=== PATIENT | male | born 1960 | race Caucasian/White ===

== ENCOUNTER 2020-10-02 13:33 | Inpatient (IN) | payer OTHER, BC ==
[2020-10-02 14:11] LABS: CHLORIDE,CL 86 mEq/L (98-106); SODIUM,NA 126 mEq/L (136-145)
--- NOTE | 2020-10-02 14:15 | EDM.PDOC ---
ED HPI GENERAL MEDICAL PROBLEM - General Chief Complaint: General Stated Complaint: L Knee Pain Time Seen by Provider: 10/02/20 13:45 Source of Information: Reports: Patient, Other (friends- Lee Corbett) History Limitations: Reports: No Limitations - History of Present Illness INITIAL COMMENTS - FREE TEXT/NARRATIVE: Was stuck between a fender and a cab on the tractor that he was mowing grass with. He states that his knee gave out. He couldn't get himself out and was estimated that he was there for over 3.5 hours. He has abrasion to his knees bilaterally the left one was the one stuck. He has abrasion to the right hip where there was pressure applied and from trying to get out. The friend that brought him, (Lee Corbett) states that his son had been here over the weekend and he felt that he wasn't right but couldn't be more specific. He felt that he didn't answer all questions right and would just stare for short periods. Also noted an episode where he had some shaking. Pt states that his legs have been bothering him for "awhile" stating that they don't want to hold him up. He Denies any injuries or weakness overall. No headaches. Onset: Gradual Location: Reports: Lower Extremity, Left, Lower Extremity, Right, Generalized - Related Data Allergies Allergy/AdvReac Type Severity Reaction Status Date / Time No Known Allergies Allergy Verified 10/02/20 13:40 Home Meds: Home Meds Lisinopril/Hydrochlorothiazide [Lisinopril-Hctz 20-25 mg Tab] 1 each PO DAILY 10/02/20 [History] Magnesium Chloride [Slow-Mag] 71.5 mg PO BID 10/02/20 [History] Metoprolol Succinate 200 mg PO DAILY 10/02/20 [History] NIFEdipine [Nifedipine ER] 30 mg PO DAILY 10/02/20 [History] Potassium Chloride 10 meq PO DAILY 10/02/20 [History] atorvaSTATin [Lipitor] 20 mg PO BEDTIME 10/02/20 [History] metFORMIN HCl [Metformin HCl] 1,000 mg PO DAILY 10/02/20 [History] Past Medical History - History Comment History Comment: see RN notes for past medical, family, social, surgical history Social & Family History - Tobacco Use Tobacco Use Status *Q: Never Tobacco User - Living Situation & Occupation Living situation: Reports: , with Spouse Occupation: Employed ED ROS GENERAL - Review of Systems Review Of Systems: See Below Constitutional: Reports: Weakness, Fatigue. Denies: Fever, Chills HEENT: Reports: No Symptoms Respiratory: Reports: No Symptoms Cardiovascular: Denies: Chest Pain, Edema GI/Abdominal: Reports: No Symptoms. Denies: Abdominal Pain, Constipation, Diarrhea : Reports: No Symptoms. Denies: Dysuria, Frequency, Incontinence Musculoskeletal: Reports: Leg Pain Skin: Reports: Bruising, Wound (bilateral knees, right hip) Neurological: Reports: Difficulty Walking, Weakness, Other (slow to respond to questions at times.) Psychiatric: Reports: No Symptoms Hematologic/Lymphatic: Reports: No Symptoms ED EXAM, GENERAL - Physical Exam Exam: See Below Exam Limited By: No Limitations General Appearance: Alert, WD/WN, Mild Distress Eye Exam: Bilateral Eye: PERRL Ears: Normal External Exam, Normal Canal, Normal TMs Nose: Normal Inspection Throat/Mouth: Normal Inspection, Normal Oropharynx, No Airway Compromise, Other (oral mucosa is dry.) Head: Atraumatic, Normocephalic Neck: Normal Inspection, Supple, Non-Tender, Full Range of Motion Respiratory/Chest: No Respiratory Distress, Lungs Clear, Normal Breath Sounds Cardiovascular: Normal Peripheral Pulses, Regular Rate, Rhythm, No Edema GI/Abdominal: Normal Bowel Sounds, Soft, Non-Tender Back Exam: Normal Inspection, Full Range of Motion Extremities: Other (knees bilaterally are bruised with abrasions on them. Has abrasion to the right hip where it pressed against the tractor where he was stuck. States that he didn't have enough strength to lift himself up when his legs gave out on the tractor.) Neurological: Alert, Oriented, Slow to Respond (Has to think before he answers some questions. He admits that he just doesn't feel right but can't be more specific. He repeated several times that it feels like his legs weren't going to hold him up several occasions over the weekend. ) Psychiatric: Normal Affect Skin Exam: Warm, Dry, Intact, Normal Color Course - Vital Signs Last Recorded V/S: Last Vital Signs Temp 97.9 F 10/02/20 16:00 Pulse 94 10/02/20 16:00 Resp 18 10/02/20 16:00 BP 111/78 10/02/20 16:00 Pulse Ox 96 10/02/20 16:00 - Orders/Labs/Meds Orders: Active Orders 24 hr Category Date Time Status Head wo Cont [CT] Stat Exams 10/02/20 13:38 Taken Knee 3V Lt [CR] Stat Exams 10/02/20 13:47 Taken CULTURE URINE [RM] Stat Lab 10/02/20 17:20 Received Sodium Chloride 0.9% [Normal Saline] 1,000 ml Med 10/02/20 14:30 Active IV ASDIRECTED Medication Orders Acetaminophen (Acetaminophen 325 Mg Tab) 650 mg PO Q4H PRN PRN Reason: Pain (Mild 1-3)/fever Atorvastatin Calcium (Atorvastatin 20 Mg Tab) 20 mg PO BEDTIME [facility] Last Admin: 10/02/20 19:41 Dose: 20 mg Documented by: HUSSEIN Ceftriaxone Sodium (Ceftriaxone 1 Gm Vial) 1 gm IVPUSH BEDTIME [facility] Last Admin: 10/02/20 17:45 Dose: 1 gm Documented by: TAMARA Enoxaparin Sodium (Enoxaparin 40 Mg/0.4 Ml Syringe) 40 mg SUBCUT DAILY@1200 [facility] Hydrochlorothiazide (Hydrochlorothiazide 25 Mg Tab) 25 mg PO DAILY [facility] Sodium Chloride (Normal Saline) 1,000 mls @ 200 mls/hr IV ASDIRECTED [facility] Last Admin: 10/02/20 14:32 Dose: 200 mls/hr Documented by: TAMARA Lisinopril (Lisinopril 20 Mg Tab) 20 mg PO DAILY [facility] Magnesium Chloride (Magnesium Chloride 64 Mg Tab.Er) 64 mg PO BIDMEALS [facility] Last Admin: 10/02/20 16:56 Dose: 64 mg Documented by: TAMARA Metformin HCl (Metformin 500 Mg Tab) 1,000 mg PO DAILY [facility] Metoprolol Succinate (Metoprolol Succinate 100 Mg Tab.Er) 200 mg PO DAILY [facility] Nifedipine (Nifedipine 30 Mg Tab.Er) 30 mg PO DAILY [facility] Labs: Laboratory Tests 10/02/20 10/02/20 10/02/20 Range/Units 13:48 13:48 13:48 WBC 11.2 H (5.0-10.0) 10^3/uL RBC 3.87 L (4.50-6.00) 10^6/uL Hgb 12.9 L (14.0-18.0) g/dL Hct 36.1 L (40.0-54.0) % MCV 93.3 (82.0-94.0) fL MCH 33.3 H (27.0-32.0) pg MCHC 35.7 (33.0-38.0) g/dL RDW Coeff of Cammie 13.4 (11.0-15.0) % Plt Count 77 L (150-400) 10^3/uL Add Manual Diff Yes Neutrophils % (Manual) 72 (35-85) % Band Neutrophils % 18 H (0-5) % Lymphocytes % (Manual) 3 L (21-55) % Monocytes % (Manual) 7 (2-12) % Sodium 126 L (136-145) mEq/L Potassium 3.0 L D (3.5-5.0) mEq/L Chloride 86 L (98-106) mEq/L Carbon Dioxide 17 L (21-32) mmol/L BUN 26 H D (7-18) mg/dL Creatinine 2.4 H D (0.7-1.3) mg/dL Est Cr Clr Drug Dosing 37.58 mL/min Estimated GFR (MDRD) 28 L (>=60) mL/min Glucose 242 H D (75-99) mg/dL Lactic Acid 10.9 H (0.4-2.0) mmol/L Calcium 9.1 (8.4-10.1) mg/dL Magnesium 1.8 (1.8-2.4) mg/dL Total Bilirubin 2.1 H (0.0-1.0) mg/dL AST 44 H (15-37) U/L ALT 25 (12-78) U/L Alkaline Phosphatase 117 H (46-116) U/L Creatine Kinase 697 H (35-232) U/L Troponin I < 0.017 (0.00-0.06) ng/mL C-Reactive Protein 28.2 H (0.2-0.8) mg/dL Total Protein 7.1 (6.4-8.2) g/dL Albumin 3.0 L (3.4-5.0) g/dL Meds: Medications Generic Name Dose Route Start Last Admin Trade Name Freq PRN Reason Stop Dose Admin Acetaminophen 650 mg 10/02/20 15:30 Acetaminophen 325 Mg Tab PO Q4H PRN Pain (Mild 1-3)/fever Atorvastatin Calcium 20 mg 10/02/20 20:00 10/02/20 19:41 Atorvastatin 20 Mg Tab PO 20 mg BEDTIME RASHEED Administration Ceftriaxone Sodium 1 gm 10/02/20 18:00 10/02/20 17:45 Ceftriaxone 1 Gm Vial IVPUSH 1 gm BEDTIME RASHEED Administration Enoxaparin Sodium 40 mg 10/03/20 12:00 Enoxaparin 40 Mg/0.4 Ml Syringe SUBCUT DAILY@1200 [facility] Hydrochlorothiazide 25 mg 10/03/20 08:00 Hydrochlorothiazide 25 Mg Tab PO DAILY [facility] Sodium Chloride 1,000 mls @ 200 mls/hr 10/02/20 14:30 10/02/20 14:32 Normal Saline IV 200 mls/hr ASDIRECTED RASHEED Administration Lisinopril 20 mg 10/03/20 08:00 Lisinopril 20 Mg Tab PO DAILY RASHEED Magnesium Chloride 64 mg 10/02/20 17:30 10/02/20 16:56 Magnesium Chloride 64 Mg Tab.Er PO 64 mg BIDMEALS RASHEED Administration Metformin HCl 1,000 mg 10/03/20 08:00 Metformin 500 Mg Tab PO DAILY [facility] Metoprolol Succinate 200 mg 10/03/20 08:00 Metoprolol Succinate 100 Mg Tab.Er PO DAILY [facility] Nifedipine 30 mg 10/03/20 08:00 Nifedipine 30 Mg Tab.Er PO DAILY [facility] Discontinued Medications Generic Name Dose Route Start Last Admin Trade Name Freq PRN Reason Stop Dose Admin Potassium Chloride 40 meq/ 100 mls @ 25 mls/hr 10/02/20 16:30 10/02/20 16:56 Premix IV 10/02/20 20:29 25 mls/hr ONETIME ONE Administration Departure - Departure Time of Disposition: 15:00 Disposition: Admitted As Inpatient 65 Condition: Fair Clinical Impression: Hypokalemia, Hyponatremia, Acute renal insufficiency Crush injury lower leg Qualifiers: Encounter type: initial encounter Laterality: left Qualified Code(s): S87.82XA - Crushing injury of left lower leg, initial encounter Clinical Impression: (Ruled Out): Crush injury knee - Discharge Information *PRESCRIPTION DRUG MONITORING PROGRAM REVIEWED*: Not Applicable *COPY OF PRESCRIPTION DRUG MONITORING REPORT IN PATIENT ABBI: Not Applicable Sepsis Event Note (ED) - Evaluation Sepsis Screening Result: No Definite Risk - Focused Exam Vital Signs: Vital Signs Temp Pulse Resp BP Pulse Ox 10/02/20 13:44 97.8 F 109 H 18 106/61 96 - Problem List & Annotations (1) Crush injury lower leg SNOMED Code(s): 48787287 Code(s): S87.80XA - CRUSHING INJURY OF UNSPECIFIED LOWER LEG, INITIAL ENCOUNTER Status: Acute Priority: High Current Visit: Yes Qualifiers: Encounter type: initial encounter Laterality: left Qualified Code(s): S87.82XA - Crushing injury of left lower leg, initial encounter (2) Acute renal insufficiency SNOMED Code(s): 091404226 Code(s): N28.9 - DISORDER OF KIDNEY AND URETER, UNSPECIFIED Status: Acute Priority: High Current Visit: Yes (3) Hypokalemia SNOMED Code(s): 37773294 Code(s): E87.6 - HYPOKALEMIA Status: Acute Priority: High Current Visit: Yes (4) Hyponatremia SNOMED Code(s): 51150316 Code(s): E87.1 - HYPO-OSMOLALITY AND HYPONATREMIA Status: Acute Priority: High Current Visit: Yes - Problem List Review Problem List Initiated/Reviewed/Updated: Yes - My Orders Last 24 Hours: My Active Orders 10/02/20 13:38 Head wo Cont [CT] Stat 10/02/20 13:47 Knee 3V Lt [CR] Stat 10/02/20 14:30 Sodium Chloride 0.9% [Normal Saline] 1,000 ml IV ASDIRECTED 10/02/20 17:20 CULTURE URINE [RM] Stat - Assessment/Plan Admission H&P: Please use this note as an admission H&P Last 24 Hours: My Active Orders 10/02/20 13:38 Head wo Cont [CT] Stat 10/02/20 13:47 Knee 3V Lt [CR] Stat 10/02/20 14:30 Sodium Chloride 0.9% [Normal Saline] 1,000 ml IV ASDIRECTED 10/02/20 17:20 CULTURE URINE [RM] Stat Plan: Pt discussed with Dr. Quick and labs reviewed. He agrees pt Will be admitted acute, repeat labs in the AM. Hydrate well. Watch for further injury to both legs to develop. Monitor his neuro status. Will be on telemetry.
[2020-10-02] MEDS ORDERED: Sodium Chloride 0.9% 1,000 ML IV SCH (14:30)
[2020-10-02] MEDS ORDERED: Potassium Chloride Riders 40 MEQ in Premix Bag 1 BAG IV ONE (16:30)
[2020-10-02] MEDS: Magnesium Chloride 64 MG Tab.ER PO SCH (16:56)
[2020-10-02] MEDS: cefTRIAXone 1 GM Vial IVPUSH SCH (17:45)
[2020-10-02] MEDS: atorvaSTATin 20 MG Tab PO SCH (19:41)
[2020-10-02 20:53] LABS: CHLORIDE,CL 89 mEq/L (98-106); SODIUM,NA 125 mEq/L (136-145)
[2020-10-02] MEDS: NS + KCl 20mEq/L 1,000 ML IV SCH (22:52)
[2020-10-03] MEDS: NS + KCl 20mEq/L 1,000 ML IV SCH ×3 (03:58→18:03)
[2020-10-03] MEDS: Magnesium Chloride 64 MG Tab.ER PO SCH ×2 (08:00→17:04)
[2020-10-03] MEDS: Lisinopril 20 MG Tab PO SCH (08:00)
[2020-10-03] MEDS: NIFEdipine 30 MG Tab.ER PO SCH (08:00)
[2020-10-03] MEDS: Metoprolol Succinate 100 MG Tab.ER PO SCH (08:01)
[2020-10-03] MEDS: Hydrochlorothiazide 25 MG Tab PO SCH (08:01)
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
[2020-10-03] MEDS: Enoxaparin 40 MG/0.4 ML Syringe SUBCUT SCH (11:21)
[2020-10-03] MEDS: Acetaminophen 325 MG Tab PO PRN (11:59)
[2020-10-03] MEDS: metFORMIN 500 MG Tab PO SCH (12:15)
[2020-10-03] MEDS: Potassium Chloride 10 MEQ Tab.ER PO SCH (17:04)
[2020-10-03] MEDS: atorvaSTATin 20 MG Tab PO SCH (19:48)
[2020-10-03] MEDS: cefTRIAXone 1 GM Vial IVPUSH SCH (19:49)
[2020-10-04] MEDS: Acetaminophen 325 MG Tab PO PRN ×2 (03:40→23:42)
[2020-10-04] MEDS: NS + KCl 20mEq/L 1,000 ML IV SCH ×2 (03:41→14:07)
[2020-10-04] MEDS: Metoprolol Succinate 100 MG Tab.ER PO SCH (07:45)
[2020-10-04] MEDS: Magnesium Chloride 64 MG Tab.ER PO SCH ×2 (07:45→17:21)
[2020-10-04] MEDS: metFORMIN 500 MG Tab PO SCH (07:45)
[2020-10-04] MEDS: Lisinopril 20 MG Tab PO SCH (07:45)
[2020-10-04] MEDS: Potassium Chloride 10 MEQ Tab.ER PO SCH ×2 (07:45→17:21)
[2020-10-04] MEDS: NIFEdipine 30 MG Tab.ER PO SCH (07:46)
[2020-10-04] MEDS: Hydrochlorothiazide 25 MG Tab PO SCH (07:46)
[2020-10-04 08:17] LABS: CHLORIDE,CL 92 mEq/L (98-106); SODIUM,NA 128 mEq/L (136-145)
[2020-10-04] MEDS: Enoxaparin 40 MG/0.4 ML Syringe SUBCUT SCH (12:01)
[2020-10-04] MEDS: cefTRIAXone 1 GM Vial IVPUSH SCH (19:14)
[2020-10-04] MEDS: atorvaSTATin 20 MG Tab PO SCH (19:14)
--- NOTE | 2020-10-04 20:53 | PCM.PN ---
- General Info Date of Service: 10/04/20 Admission Dx/Problem (Free Text): Crushing injury of left lower leg Weakness UTI Subjective Update: Eric is resting comfortably in bed. Does report difficulty with urination, unable to empty bladder. Was incontinent of urine this am, states has history of dribbling but no difficulties like this. Is noted to have UTI. Believes urinary retention is from the IV antibiotic Rocephin. Low grade temps. Has not yet been out of bed much, feels unsteady. Has noted tremor in right arm, states has been present for some time but feels worse now. Does have leg weakness, states knees have given out on him in the past. Mild thigh discomfort. Appeti te has been good. Functional Status: Reports: Pain Controlled, Tolerating Diet. Denies: Ambulating - Review of Systems General: Reports: Weakness, Malaise HEENT: Reports: No Symptoms Pulmonary: Denies: Shortness of Breath, Cough Cardiovascular: Denies: Chest Pain, Edema, Lightheadedness Gastrointestinal: Reports: Nausea. Denies: Abdominal Pain, Vomiting Genitourinary: Reports: Incontinence, Retention Musculoskeletal: Reports: Leg Pain Skin: Reports: Bruising Neurological: Reports: Weakness - Patient Data Vitals - Most Recent: Last Vital Signs Temp 99.2 F 10/04/20 19:16 Pulse 79 10/04/20 16:00 Resp 18 10/04/20 19:16 BP 138/73 10/04/20 19:16 Pulse Ox 97 10/04/20 19:16 Weight - Most Recent: 268 lb 14.4 oz I&O - Last 24 Hours: Intake & Output 10/04/20 10/04/20 10/04/20 06:59 14:59 22:59 Intake Total 1463 1000 2900 Output Total 600 320 Balance 863 1016 -284 Lab Results Last 24 Hours: Laboratory Results - last 24 hr 10/04/20 10/04/20 10/04/20 Range/Units 06:00 06:00 06:00 WBC 4.2 L (5.0-10.0) 10^3/uL RBC 3.59 L (4.50-6.00) 10^6/uL Hgb 11.9 L (14.0-18.0) g/dL Hct 33.7 L (40.0-54.0) % MCV 93.9 (82.0-94.0) fL MCH 33.1 H (27.0-32.0) pg MCHC 35.3 (33.0-38.0) g/dL RDW Coeff of Cammie 13.6 (11.0-15.0) % Plt Count 67 L (150-400) 10^3/uL Neut % (Auto) 87.7 H (35-85) % Lymph % (Auto) 5.0 L (10-55) % [place] % (Auto) 7.1 (0-16) % Eos % (Auto) 0 (0-5) % Baso % (Auto) 0.2 (0-3) % Neut # (Auto) 3.69 (1.80-7.00) 10^3/uL Lymph # (Auto) 0.21 L (1.00-4.80) 10^3/uL [place] # (Auto) 0.30 (0.00-0.80) 10^3/uL Eos # (Auto) 0.00 (0.00-0.45) 10^3/uL Baso # (Auto) 0.01 10^3/uL Sodium 128 L (136-145) mEq/L Potassium 3.6 (3.5-5.0) mEq/L Chloride 92 L (98-106) mEq/L Carbon Dioxide 26 (21-32) mmol/L BUN 15 (7-18) mg/dL Creatinine 1.1 (0.7-1.3) mg/dL Est Cr Clr Drug Dosing 79.70 mL/min Estimated GFR (MDRD) > 60 (>=60) mL/min Glucose 177 H (75-99) mg/dL POC Glucose (75-105) mg/dL Lactic Acid 1.1 (0.4-2.0) mmol/L Calcium 8.0 L (8.4-10.1) mg/dL Total Bilirubin 1.6 H (0.0-1.0) mg/dL AST 153 H (15-37) U/L ALT 55 (12-78) U/L Alkaline Phosphatase 118 H (46-116) U/L Creatine Kinase 1372 H (35-232) U/L C-Reactive Protein 11.8 H (0.2-0.8) mg/dL Total Protein 6.0 L (6.4-8.2) g/dL Albumin 2.4 L (3.4-5.0) g/dL 10/04/20 10/04/20 10/04/20 Range/Units 07:41 11:51 17:02 WBC (5.0-10.0) 10^3/uL RBC (4.50-6.00) 10^6/uL Hgb (14.0-18.0) g/dL Hct (40.0-54.0) % MCV (82.0-94.0) fL MCH (27.0-32.0) pg MCHC (33.0-38.0) g/dL RDW Coeff of Cammie (11.0-15.0) % Plt Count (150-400) 10^3/uL Neut % (Auto) (35-85) % Lymph % (Auto) (10-55) % [place] % (Auto) (0-16) % Eos % (Auto) (0-5) % Baso % (Auto) (0-3) % Neut # (Auto) (1.80-7.00) 10^3/uL Lymph # (Auto) (1.00-4.80) 10^3/uL [place] # (Auto) (0.00-0.80) 10^3/uL Eos # (Auto) (0.00-0.45) 10^3/uL Baso # (Auto) 10^3/uL Sodium (136-145) mEq/L Potassium (3.5-5.0) mEq/L Chloride (98-106) mEq/L Carbon Dioxide (21-32) mmol/L BUN (7-18) mg/dL Creatinine (0.7-1.3) mg/dL Est Cr Clr Drug Dosing mL/min Estimated GFR (MDRD) (>=60) mL/min Glucose (75-99) mg/dL POC Glucose 192 H 175 H 171 H (75-105) mg/dL Lactic Acid (0.4-2.0) mmol/L Calcium (8.4-10.1) mg/dL Total Bilirubin (0.0-1.0) mg/dL AST (15-37) U/L ALT (12-78) U/L Alkaline Phosphatase (46-116) U/L Creatine Kinase (35-232) U/L C-Reactive Protein (0.2-0.8) mg/dL Total Protein (6.4-8.2) g/dL Albumin (3.4-5.0) g/dL Med Orders - Current: Current Medications Acetaminophen (Acetaminophen 325 Mg Tab) 650 mg PO Q4H PRN PRN Reason: Pain (Mild 1-3)/fever Last Admin: 10/04/20 03:40 Dose: 650 mg Documented by: Atorvastatin Calcium (Atorvastatin 20 Mg Tab) 20 mg PO BEDTIME [facility] Last Admin: 10/04/20 19:14 Dose: 20 mg Documented by: Ceftriaxone Sodium (Ceftriaxone 1 Gm Vial) 1 gm IVPUSH BEDTIME [facility] Last Admin: 10/04/20 19:14 Dose: 1 gm Documented by: Enoxaparin Sodium (Enoxaparin 40 Mg/0.4 Ml Syringe) 40 mg SUBCUT DAILY@1200 [facility] Last Admin: 10/04/20 12:01 Dose: 40 mg Documented by: Hydrochlorothiazide (Hydrochlorothiazide 25 Mg Tab) 25 mg PO DAILY [facility] Last Admin: 10/04/20 07:46 Dose: 25 mg Documented by: Potassium Chloride/Sodium Chloride (Normal Saline With 20 Meq Kcl) 1,000 mls @ 100 mls/hr IV ASDIRECTED [facility] Last Admin: 10/04/20 14:07 Dose: 100 mls/hr Documented by: Lisinopril (Lisinopril 20 Mg Tab) 20 mg PO DAILY [facility] Last Admin: 10/04/20 07:45 Dose: 20 mg Documented by: Magnesium Chloride (Magnesium Chloride 64 Mg Tab.Er) 64 mg PO BIDMEALS [facility] Last Admin: 10/04/20 17:21 Dose: 64 mg Documented by: Metformin HCl (Metformin 500 Mg Tab) 1,000 mg PO DAILY [facility] Last Admin: 10/04/20 07:45 Dose: 1,000 mg Documented by: Metoprolol Succinate (Metoprolol Succinate 100 Mg Tab.Er) 200 mg PO DAILY [facility] Last Admin: 10/04/20 07:45 Dose: 200 mg Documented by: Nifedipine (Nifedipine 30 Mg Tab.Er) 30 mg PO DAILY [facility] Last Admin: 10/04/20 07:46 Dose: 30 mg Documented by: Potassium Chloride (Potassium Chloride 10 Meq Tab.Er) 20 meq PO BIDMEALS [facility] Last Admin: 10/04/20 17:21 Dose: 20 meq Documented by: Discontinued Medications Sodium Chloride (Normal Saline) 1,000 mls @ 200 mls/hr IV ASDIRECTED [facility] Last Admin: 10/02/20 14:32 Dose: 200 mls/hr Documented by: Potassium Chloride 40 meq/ (Premix) 100 mls @ 25 mls/hr IV ONETIME ONE Stop: 10/02/20 20:29 Last Admin: 10/02/20 16:56 Dose: 25 mls/hr Documented by: - Exam Urinary Catheter Total Time: 0Days 0Hours General: Alert, Oriented HEENT: Mucous Membr. Moist/[place] Neck: Supple Lungs: Clear to Auscultation, Normal Respiratory Effort Cardiovascular: Regular Rate, Regular Rhythm GI/Abdominal Exam: Normal Bowel Sounds, Soft, Distended Extremities: Normal Inspection, No Pedal Edema Skin: Ecchymosis (left thigh) Neurological: No New Focal Deficit - Patient Data Lab Results Last 24 hrs: Laboratory Results - last 24 hr 10/04/20 10/04/20 10/04/20 Range/Units 06:00 06:00 06:00 WBC 4.2 L (5.0-10.0) 10^3/uL RBC 3.59 L (4.50-6.00) 10^6/uL Hgb 11.9 L (14.0-18.0) g/dL Hct 33.7 L (40.0-54.0) % MCV 93.9 (82.0-94.0) fL MCH 33.1 H (27.0-32.0) pg MCHC 35.3 (33.0-38.0) g/dL RDW Coeff of Cammie 13.6 (11.0-15.0) % Plt Count 67 L (150-400) 10^3/uL Neut % (Auto) 87.7 H (35-85) % Lymph % (Auto) 5.0 L (10-55) % [place] % (Auto) 7.1 (0-16) % Eos % (Auto) 0 (0-5) % Baso % (Auto) 0.2 (0-3) % Neut # (Auto) 3.69 (1.80-7.00) 10^3/uL Lymph # (Auto) 0.21 L (1.00-4.80) 10^3/uL [place] # (Auto) 0.30 (0.00-0.80) 10^3/uL Eos # (Auto) 0.00 (0.00-0.45) 10^3/uL Baso # (Auto) 0.01 10^3/uL Sodium 128 L (136-145) mEq/L Potassium 3.6 (3.5-5.0) mEq/L Chloride 92 L (98-106) mEq/L Carbon Dioxide 26 (21-32) mmol/L BUN 15 (7-18) mg/dL Creatinine 1.1 (0.7-1.3) mg/dL Est Cr Clr Drug Dosing 79.70 mL/min Estimated GFR (MDRD) > 60 (>=60) mL/min Glucose 177 H (75-99) mg/dL POC Glucose (75-105) mg/dL Lactic Acid 1.1 (0.4-2.0) mmol/L Calcium 8.0 L (8.4-10.1) mg/dL Total Bilirubin 1.6 H (0.0-1.0) mg/dL AST 153 H (15-37) U/L ALT 55 (12-78) U/L Alkaline Phosphatase 118 H (46-116) U/L Creatine Kinase 1372 H (35-232) U/L C-Reactive Protein 11.8 H (0.2-0.8) mg/dL Total Protein 6.0 L (6.4-8.2) g/dL Albumin 2.4 L (3.4-5.0) g/dL 10/04/20 10/04/20 10/04/20 Range/Units 07:41 11:51 17:02 WBC (5.0-10.0) 10^3/uL RBC (4.50-6.00) 10^6/uL Hgb (14.0-18.0) g/dL Hct (40.0-54.0) % MCV (82.0-94.0) fL MCH (27.0-32.0) pg MCHC (33.0-38.0) g/dL RDW Coeff of Cammie (11.0-15.0) % Plt Count (150-400) 10^3/uL Neut % (Auto) (35-85) % Lymph % (Auto) (10-55) % [place] % (Auto) (0-16) % Eos % (Auto) (0-5) % Baso % (Auto) (0-3) % Neut # (Auto) (1.80-7.00) 10^3/uL Lymph # (Auto) (1.00-4.80) 10^3/uL [place] # (Auto) (0.00-0.80) 10^3/uL Eos # (Auto) (0.00-0.45) 10^3/uL Baso # (Auto) 10^3/uL Sodium (136-145) mEq/L Potassium (3.5-5.0) mEq/L Chloride (98-106) mEq/L Carbon Dioxide (21-32) mmol/L BUN (7-18) mg/dL Creatinine (0.7-1.3) mg/dL Est Cr Clr Drug Dosing mL/min Estimated GFR (MDRD) (>=60) mL/min Glucose (75-99) mg/dL POC Glucose 192 H 175 H 171 H (75-105) mg/dL Lactic Acid (0.4-2.0) mmol/L Calcium (8.4-10.1) mg/dL Total Bilirubin (0.0-1.0) mg/dL AST (15-37) U/L ALT (12-78) U/L Alkaline Phosphatase (46-116) U/L Creatine Kinase (35-232) U/L C-Reactive Protein (0.2-0.8) mg/dL Total Protein (6.4-8.2) g/dL Albumin (3.4-5.0) g/dL Result Diagrams: 10/04/20 06:00 10/04/20 06:00 Sepsis Event Note - Evaluation Sepsis Screening Result: No Definite Risk - Focused Exam Vital Signs: Vital Signs Temp Pulse Resp BP Pulse Ox 10/04/20 19:16 99.2 F 18 138/73 97 10/04/20 16:00 99.1 F 79 18 129/69 97 10/04/20 12:00 99.6 F 89 20 117/49 L 95 - Problem List & Annotations (1) UTI (urinary tract infection) SNOMED Code(s): 57807887 Code(s): N39.0 - URINARY TRACT INFECTION, SITE NOT SPECIFIED Status: Acute Priority: High Current Visit: Yes Qualifiers: Urinary tract infection type: acute cystitis (2) Acute renal insufficiency SNOMED Code(s): 052510706 Code(s): N28.9 - DISORDER OF KIDNEY AND URETER, UNSPECIFIED Status: Acute Priority: High Current Visit: Yes (3) Crush injury lower leg SNOMED Code(s): 56625232 Code(s): S87.80XA - CRUSHING INJURY OF UNSPECIFIED LOWER LEG, INITIAL ENCOUNTER Status: Acute Priority: High Current Visit: Yes Qualifiers: Encounter type: initial encounter Laterality: left Qualified Code(s): S87.82XA - Crushing injury of left lower leg, initial encounter (4) Hypokalemia SNOMED Code(s): 67291334 Code(s): E87.6 - HYPOKALEMIA Status: Acute Priority: High Current Vis it: Yes (5) Unsteady gait SNOMED Code(s): 72054015 Code(s): R26.81 - UNSTEADINESS ON FEET Status: Acute Current Visit: Yes - Problem List Review Problem List Initiated/Reviewed/Updated: Yes - My Orders Last 24 Hours: My Active Orders 10/04/20 09:00 Insert Urinary Catheter [OM.PC] Stat 10/04/20 13:34 Head wo Cont [CT] Stat 10/04/20 17:30 Insert Manuel Catheter [Insert Urinary Catheter] [OM.PC] Q24H 10/04/20 17:31 Urinary Catheter Assessment [RC] 0800,2000 10/04/20 18:40 Urinary Catheter Assessment [RC] .PRN 10/04/20 18:42 Urinary Catheter Removal [RC] .PRN 10/06/20 08:15 Brain wo Cont [MR] Routine - Assessment Assessment:: Crush Injury of left thigh WEakness UTI Ataxia - Plan Plan:: Patient noted to have obvious tremor in right arm, more pronounced than his norm per patient. PT worked with patient today, unsteady gait, requiring cane. Urinary retention, unable to void, incontinent. Cath for residual done, noted 1800 ml out. Small clots noted. Sodium remains low yet at 128, potassium now normal at 3.6. Creatinine has normalized to 1.2. CPK is improving down to 13 72, CRP 11.8. Due to concerns with gait, tremor, urinary retention and hyponatremia, did contact neurologist as CT scan of head was normal on Friday. States that could have underlying neurodegenerative disorder such as early Parkinson's as CT did show small amount of atrophy. Questions if infection making symptoms more pronounced. Recommended MRI when able. Continue with sodium replacement per IV. Antibiotics for UTI. If symptoms do not improve or MRI abnormal, will need to follow up with neurology. Patient informed.
[2020-10-05] MEDS: NS + KCl 20mEq/L 1,000 ML IV SCH (00:54)
[2020-10-05 07:25] LABS: CHLORIDE,CL 95 mEq/L (98-106); SODIUM,NA 134 mEq/L (136-145)
[2020-10-05] MEDS: Metoprolol Succinate 100 MG Tab.ER PO SCH (07:31)
[2020-10-05] MEDS: Potassium Chloride 10 MEQ Tab.ER PO SCH ×2 (07:31→17:23)
[2020-10-05] MEDS: Hydrochlorothiazide 25 MG Tab PO SCH (07:32)
[2020-10-05] MEDS: metFORMIN 500 MG Tab PO SCH (07:32)
[2020-10-05] MEDS: NIFEdipine 30 MG Tab.ER PO SCH (07:33)
[2020-10-05] MEDS: Magnesium Chloride 64 MG Tab.ER PO SCH ×2 (07:33→17:23)
[2020-10-05] MEDS: Lisinopril 20 MG Tab PO SCH (07:33)
[2020-10-05] MEDS: Enoxaparin 40 MG/0.4 ML Syringe SUBCUT SCH (11:11)
[2020-10-05] MEDS: Sodium Chloride 0.9% 1,000 ML IV SCH (11:11)
--- NOTE | 2020-10-05 11:45 | PN ---
DATE: 10/05/2020 S: Mr. Briceño had a difficult day yesterday. I spoke with Gilma Jolley who saw him and he was having more weakness and unsteadiness on his feet. PT noticed he could only walk with a cane. I believe Gilma talked with Neurology. He did have a negative CT scan of his head on admit, but MRI is planned for tomorrow. Today, the patient feels much better. Neurology felt this might just be a combination of his dehydration and infection. Nevertheless, today he feels improved. He is having no problem with ambulation. He said he feels strong on his feet again today. It is worthy to note that his electrolyte abnormalities have resolved. The sodium is up to 134 and his potassium level is 3.5. The rest of his lab work is all reassuring, although his CK is still a little elevated, it is down from 4000 on admit to 765. We do have final report on his micro and his urine did grow out E. coli which was sensitive to a cephalosporin. O: GENERAL: The patient is pleasant, alert, and cooperative, appears in no distress. HEENT: Grossly benign. NECK: Supple. Veins are flat. LUNGS: Lung sounds are clear. CARDIAC: Tones appear regular. ABDOMEN: Soft and nontender. EXTREMITIES: No peripheral edema is seen. ASSESSMENT: 1. ESCHERICHIA COLI URINARY TRACT INFECTION, LIKELY PROSTATITIS. 2. CRUSH INJURY WITH RHABDOMYOLYSIS, IMPROVING. 3. ACUTE KIDNEY INJURY, RESOLVED. 4. HYPONATREMIA, IMPROVED. 5. HYPOKALEMIA, RESOLVED. 6. ELEVATED LIVER FUNCTION STUDIES. 7. UNSTEADY GAIT. P: Clinically, the patient appears markedly better. I am going to turn down his IV fluids and we will continue to monitor his electrolytes tomorrow. The patient is having an MRI due to his unsteady gait, although I suspect this is related to his dehydration and electrolyte abnormalities along with his infection. All appear to be improving as does the patient today. We will get the right upper quadrant ultrasound due to a slight elevation in his bilirubin and liver functions, unsure of the etiology of that at this time. The patient will continue on IV Rocephin for his E. coli. No other changes and expect if he is doing well to be home tomorrow. SHERRI/PAT /[id number]
[2020-10-05] MEDS: atorvaSTATin 20 MG Tab PO SCH (20:03)
[2020-10-05] MEDS: cefTRIAXone 1 GM Vial IVPUSH SCH (20:03)
[2020-10-06] MEDS: Acetaminophen 325 MG Tab PO PRN (00:52)
[2020-10-06] MEDS: Sodium Chloride 0.9% 1,000 ML IV SCH (00:53)
[2020-10-06] MEDS: Potassium Chloride 10 MEQ Tab.ER PO SCH ×2 (07:42→16:53)
[2020-10-06] MEDS: NIFEdipine 30 MG Tab.ER PO SCH (07:43)
[2020-10-06] MEDS: metFORMIN 500 MG Tab PO SCH (07:43)
[2020-10-06] MEDS: Lisinopril 20 MG Tab PO SCH (07:43)
[2020-10-06] MEDS: Hydrochlorothiazide 25 MG Tab PO SCH (07:43)
[2020-10-06] MEDS: Magnesium Chloride 64 MG Tab.ER PO SCH ×2 (07:43→16:53)
[2020-10-06] MEDS: Metoprolol Succinate 100 MG Tab.ER PO SCH (07:43)
[2020-10-06 09:08] LABS: CHLORIDE,CL 94 mEq/L (98-106); SODIUM,NA 131 mEq/L (136-145)
[2020-10-06] MEDS: Enoxaparin 40 MG/0.4 ML Syringe SUBCUT SCH (09:17)
[2020-10-06] MEDS ORDERED: Sodium Chloride 0.9% 1,000 ML IV SCH (10:45)
[2020-10-06] MEDS: Tamsulosin 0.4 MG Cap.ER PO SCH (11:45)
--- NOTE | 2020-10-06 13:12 | PN ---
DATE: 10/06/2020 S: Eric had a really good day yesterday and he has been doing much better again today. He is having much less unsteadiness on his feet and feels like his tremors are minimal at this time. He did have his MRI of his head this morning and I do not see any gross abnormalities. Radiology read appears reassuring as well. His vital signs have been stable. He has not spiked any temps. Blood pressures have been fine. His electrolyte levels have improved drastically and I believe his CK now this morning is back down to normal value. From a clinical standpoint, he looks very well. He feels he is speaking clear, having less confusion, and all signs indicate that this was a combination of his infection, dehydration, and electrolyte abnormalities. O: GENERAL: This morning, he is pleasant, alert, cooperative, appears in no distress. HEENT: Grossly unchanged. NECK: His neck veins are flat. LUNGS: Lung sounds appear clear throughout. CARDIAC: Tones are regular. ABDOMEN: Soft and nontender. There is no flank pain. EXTREMITIES: Lower extremities are without edema. LABORATORY DATA: Lab work as stated earlier shows his CBC to be stable. His potassium is normalized at 4.1. His sodium remains slightly low at 131. The LFTs are slightly improved as well. The CPK is down to 268 and his CRP is down from 28 at its high to 11.4 today. ASSESSMENT: 1. ESCHERICHIA COLI URINARY TRACT INFECTION, LIKELY PROSTATITIS. 2. ACUTE KIDNEY INJURY, RESOLVED. 3. CRUSH INJURY WITH SUBSEQUENT RHABDOMYOLYSIS, RESOLVED. 4. HYPOKALEMIA, RESOLVED. 5. HYPONATREMIA, IMPROVING. 6. SLIGHTLY ELEVATED LFTS, IMPROVING. 7. ATAXIA WITH CONFUSION, IMPROVED. P: Clinically, the patient looks very good. I am going to stop his telemetry. We will slow down his IV fluids. Check his electrolyte levels again tomorrow, and if he is doing well, he will go home on a 2- week finished course of Ceftin. Have follow up with Urology in the near future. We will keep a close eye on his electrolytes and have him followed up as an outpatient, but at this time, I do not see anything ominous from a neurologic standpoint, and all-in-all, I suspect his symptoms were related to a combination of factors including infection, dehydration, and electrolyte issues. AYESHAP/MODL /[id number]
--- NOTE | 2020-10-06 14:13 | PN ---
DATE: 10/06/2020 ADDENDUM: I reviewed Eric's right upper quadrant ultrasound. He has a little gallbladder wall thickening, but a negative Berumen sign. Liver and ducts all look fine. We will continue to monitor his LFTs. DIAGNOSIS: Urinary retention, likely secondary to his benign prostatic hyperplasia. We are going to discontinue his Manuel today, start him on Flomax, and see how he voids. He will have an outpatient consultation with Dr. Wade in the future. SHERRI/PAT /[id number]
[2020-10-06] MEDS: cefTRIAXone 1 GM Vial IVPUSH SCH (19:56)
[2020-10-06] MEDS: atorvaSTATin 20 MG Tab PO SCH (19:57)
[2020-10-07 07:39] LABS: CHLORIDE,CL 98 mEq/L (98-106); SODIUM,NA 134 mEq/L (136-145)
[2020-10-07] MEDS: Metoprolol Succinate 100 MG Tab.ER PO SCH (07:56)
[2020-10-07] MEDS: Potassium Chloride 10 MEQ Tab.ER PO SCH (07:56)
[2020-10-07] MEDS: Lisinopril 20 MG Tab PO SCH (07:57)
[2020-10-07] MEDS: NIFEdipine 30 MG Tab.ER PO SCH (07:57)
[2020-10-07] MEDS: Enoxaparin 40 MG/0.4 ML Syringe SUBCUT SCH (07:57)
[2020-10-07] MEDS: Magnesium Chloride 64 MG Tab.ER PO SCH (07:57)
[2020-10-07] MEDS: Hydrochlorothiazide 25 MG Tab PO SCH (07:57)
[2020-10-07] MEDS: Tamsulosin 0.4 MG Cap.ER PO SCH (07:57)
[2020-10-07] MEDS: metFORMIN 500 MG Tab PO SCH (07:57)
--- NOTE | 2020-10-07 11:10 | PCM.DCSUM1 ---
Discharge Summary - Hospital Course Free Text/Narrative:: Eric is a 60 year old male who presented to ER after be got trapped between a fender and a cab on his oyster picker while mowing grass. States his knees gave out and he was unable to get himself out. Was found there approximately 3 1/2 hours later by a friend. Friend had also reported that son had been here over the weekend and felt he "wasn't quite right but couldn't be more specific". [place] he was slow to answer questions at times and had a blank stare. Does have chronic tremor in his hand but seemed to be more pronounced. Was found to have abrasions on his knees bilaterally. Bruising to his left thigh. Abrasion to right hip where there was pressure and from trying to get him out. Labs noted elevated CPK nearly 700. Sodium 126. Potassium 3.0. Lactic acid 10.9. Creatinine 2.4. CRP 28.5. Admitted for crush injury/dehydration/electrolyte i mbalance. Started on IV fluids. Was also found to have UTI, Rocephin initiated. Diagnosis: Stroke: No Modified Baljinder Scale: No Symptoms at All Modified Independence Scale Score: 0 - Discharge Data Discharge Date: 10/07/20 Discharge Disposition: Home, Self-Care 01 Condition: Good - Referral to Home Health Primary Care Physician: Hayder Quick MD - Discharge Diagnosis/Problem(s) (1) UTI (urinary tract infection) SNOMED Code(s): 79202648 ICD Code: N39.0 - URINARY TRACT INFECTION, SITE NOT SPECIFIED Status: Acute Priority: High Current Visit: Yes Qualifiers: Urinary tract infection type: acute cystitis (2) Acute renal insufficiency SNOMED Code(s): 445383974 ICD Code: N28.9 - DISORDER OF KIDNEY AND URETER, UNSPECIFIED Status: Acute Priority: High Current Visit: Yes (3) Crush injury lower leg SNOMED Code(s): 94104286 ICD Code: S87.80XA - CRUSHING INJURY OF UNSPECIFIED LOWER LEG, INITIAL ENCOUNTER Status: Acute Priority: High Current Visit: Yes Qualifiers: Encounter type: initial encounter Laterality: left Qualified Code(s): S87.82XA - Crushing injury of left lower leg, initial encounter (4) Hypokalemia SNOMED Code(s): 21539057 ICD Code: E87.6 - HYPOKALEMIA Status: Resolved Priority: High Current Visit: Yes (5) Unsteady gait SNOMED Code(s): 61949178 ICD Code: R26.81 - UNSTEADINESS ON FEET Status: Resolved Current Visit: Yes - Patient Summary/Data Complications: none Consults: Consultations 10/02/20 15:39 Consult to Physical Therapy [PT Evaluation and Treatment] [CONS] Routine Hospital Course: Patient is doing well today. Did have exacerbation of neurological symptoms while here, difficulty with gait, increased tremors, slow to respond at times. Also noted increasing issues with urinary retention, incontinence. Catheter ultimately was placed on day 2 and found to have 1800 ml of urine present. Attempts to remove catheter unsuccessful as continued to have issues with voiding. Was again removed yesterday after starting Flomax, was able to initially void in small amounts but that ceased during the night and catheter again had to be placed. 900 ml urine present. Labs have stabilized. Initial CK was 697 on admit, peaked at 4149 but now nearly normalized. Sodium was low at 126. Did take several days to recover despite IV fluids, now today 134. Potassium was also low and did not respond to first IV potassium rider. Oral meds were increased, slowly returned to normal now at 4.8. Creatinine was high at 2.4 on admit, now normal. Lactic acid 10.9, now 1.3. CRP did peak at 28.2. Due to concerns with increased tremor, gait abnormality, slow to respond and urinary retention, did contact neurology at [facility] on Friday as initial CT on Friday was negative. [place] that could potentially have an underlying neurodegenerative process and infection causing exacerbation of symptoms. Suggested MRI and continue IV fluids and antibiotics. MRI was normal. Patient is now speaking easy and clear, gait is returned to normal. continues to have urinary retention despite Flomax so will need to see urology and discharge home with catheter. Will return on for recheck labs, removal of catheter and see Dr. Quick. Continue Ceftin and Flomax. Repeat labs as dose of potassium was increased to 20 meq BID from his usual 10 meq daily. - Patient Instructions Diet: Usual Diet as Tolerated Activity: As Tolerated - Discharge Plan *PRESCRIPTION DRUG MONITORING PROGRAM REVIEWED*: Not Applicable *COPY OF PRESCRIPTION DRUG MONITORING REPORT IN PATIENT ABBI: Not Applicable Prescriptions/Med Rec: Tamsulosin [Flomax] 0.4 mg PO DAILY #30 cap.er Potassium Chloride [Klor-Con 10] 20 meq PO BIDMEALS #60 tab.er Home Medications: Home Meds Lisinopril/Hydrochlorothiazide [Lisinopril-Hctz 20-25 mg Tab] 1 each PO DAILY 10/02/20 [History] Magnesium Chloride [Slow-Mag] 71.5 mg PO BID 10/02/20 [History] Metoprolol Succinate 200 mg PO DAILY 10/02/20 [History] NIFEdipine [Nifedipine ER] 30 mg PO DAILY 10/02/20 [History] atorvaSTATin [Lipitor] 20 mg PO BEDTIME 10/02/20 [History] metFORMIN HCl [Metformin HCl] 1,000 mg PO DAILY 10/02/20 [History] Aspirin [Bryan Chewable Aspirin] 2 tab PO DAILY 10/06/20 [History] Psyllium Husk [Metamucil] 1 packet PO DAILY 10/06/20 [History] Potassium Chloride [Klor-Con 10] 20 meq PO BIDMEALS #60 tab.er 10/07/20 [Rx] Tamsulosin [Flomax] 0.4 mg PO DAILY #30 cap.er 10/07/20 [Rx] Forms: ED Department Discharge Referrals: Hayder Quick MD [Primary Care Provider] - (See Dr. Quick on , remove catheter prior visit. ) - Discharge Summary/Plan Comment DC Time >30 min.: No - General Info Date of Service: 10/07/20 Admission Dx/Problem (Free Text: Crushing injury of left lower leg Weakness UTI Functional Status: Reports: Pain Controlled, Tolerating Diet, Ambulating. Denies: Urinating - Review of Systems General: Reports: Malaise. Denies: Weakness, Fatigue HEENT: Denies: Ear Pain, Sinus Congestion, Rhinitis Pulmonary: Denies: Shortness of Breath, Cough Cardiovascular: Denies: Chest Pain, Edema, Lightheadedness Gastrointestinal: Denies: Abdominal Pain, Decreased Appetite, Nausea, Vomiting Genitourinary: Reports: Retention Musculoskeletal: Reports: No Symptoms Skin: Reports: Bruising Neurological: Reports: Tremors (chronic tremor returned to baseline, much improved) - Patient Data Vitals - Most Recent: Last Vital Signs Temp 97.3 F 10/07/20 08:00 Pulse 69 10/07/20 08:00 Resp 18 10/07/20 08:00 BP 142/71 H 10/07/20 08:00 Pulse Ox 98 10/07/20 08:00 Weight - Most Recent: 268 lb 14.4 oz I&O - Last 24 hours: Intake & Output 10/06/20 10/07/20 10/07/20 22:59 06:59 14:59 Intake Total 1600 Output Total 320 Balance -1584 @ @ Lab Results - Last 24 hrs: Laboratory Results - last 24 hr 10/06/20 10/06/20 10/07/20 Range/Units 11:49 17:01 07:10 Sodium 134 L (136-145) mEq/L Potassium 4.8 (3.5-5.0) mEq/L Chloride 98 (98-106) mEq/L Carbon Dioxide 27 (21-32) mmol/L BUN 10 (7-18) mg/dL Creatinine 0.9 (0.7-1.3) mg/dL Est Cr Clr Drug Dosing 97.41 mL/min Estimated GFR (MDRD) > 60 (>=60) mL/min Glucose 152 H (75-99) mg/dL POC Glucose 145 H 128 H (75-105) mg/dL Calcium 8.5 (8.4-10.1) mg/dL C-Reactive Protein 5.5 H (0.2-0.8) mg/dL Med Orders - Current: Current Medications Acetaminophen (Acetaminophen 325 Mg Tab) 650 mg PO Q4H PRN PRN Reason: Pain (Mild 1-3)/fever Last Admin: 10/06/20 00:52 Dose: 650 mg Documented by: Atorvastatin Calcium (Atorvastatin 20 Mg Tab) 20 mg PO BEDTIME [facility] Last Admin: 10/06/20 19:57 Dose: 20 mg Documented by: Ceftriaxone Sodium (Ceftriaxone 1 Gm Vial) 1 gm IVPUSH BEDTIME [facility] Last Admin: 10/06/20 19:56 Dose: 1 gm Documented by: Enoxaparin Sodium (Enoxaparin 40 Mg/0.4 Ml Syringe) 40 mg SUBCUT DAILY [facility] Last Admin: 10/07/20 07:57 Dose: 40 mg Documented by: Hydrochlorothiazide (Hydrochlorothiazide 25 Mg Tab) 25 mg PO DAILY [facility] Last Admin: 10/07/20 07:57 Dose: 25 mg Documented by: Sodium Chloride (Normal Saline) 1,000 mls @ 50 mls/hr IV ASDIRECTED [facility] Last Admin: 10/06/20 18:22 Dose: 50 mls/hr Documented by: Lisinopril (Lisinopril 20 Mg Tab) 20 mg PO DAILY [facility] Last Admin: 10/07/20 07:57 Dose: 20 mg Documented by: Magnesium Chloride (Magnesium Chloride 64 Mg Tab.Er) 64 mg PO BIDMEALS [facility] Last Admin: 10/07/20 07:57 Dose: 64 mg Documented by: Metformin HCl (Metformin 500 Mg Tab) 1,000 mg PO DAILY [facility] Last Admin: 10/07/20 07:57 Dose: 1,000 mg Documented by: Metoprolol Succinate (Metoprolol Succinate 100 Mg Tab.Er) 200 mg PO DAILY [facility] Last Admin: 10/07/20 07:56 Dose: 200 mg Documented by: Nifedipine (Nifedipine 30 Mg Tab.Er) 30 mg PO DAILY [facility] Last Admin: 10/07/20 07:57 Dose: 30 mg Documented by: Potassium Chloride (Potassium Chloride 10 Meq Tab.Er) 20 meq PO BIDMEALS [facility] Last Admin: 10/07/20 07:56 Dose: 20 meq Documented by: Tamsulosin HCl (Tamsulosin 0.4 Mg Cap.Er) 0.4 mg PO DAILY [facility] Last Admin: 10/07/20 07:57 Dose: 0.4 mg Documented by: Discontinued Medications Enoxaparin Sodium (Enoxaparin 40 Mg/0.4 Ml Syringe) 40 mg SUBCUT DAILY@1200 [facility] Last Admin: 10/05/20 11:11 Dose: 40 mg Documented by: Sodium Chloride (Normal Saline) 1,000 mls @ 200 mls/hr IV ASDIRECTED [facility] Last Admin: 10/02/20 14:32 Dose: 200 mls/hr Documented by: Potassium Chloride 40 meq/ (Premix) 100 mls @ 25 mls/hr IV ONETIME ONE Stop: 10/02/20 20:29 Last Admin: 10/02/20 16:56 Dose: 25 mls/hr Documented by: Potassium Chloride/Sodium Chloride (Normal Saline With 20 Meq Kcl) 1,000 mls [facility] Last Admin: 10/05/20 00:54 Dose: 100 mls/hr Documented by: Sodium Chloride (Normal Saline) 1,000 mls @ 75 mls/hr IV ASDIRECTED [facility] Last Infusion: 10/06/20 11:10 Dose: 50 mls/hr Documented by: - Exam General: Reports: Alert, Oriented HEENT: Reports: Mucous Membr. Moist/[place] Neck: Reports: Supple Lungs: Reports: Clear to Auscultation, Normal Respiratory Effort Cardiovascular: Reports: Regular Rate, Regular Rhythm GI/Abdominal Exam: Normal Bowel Sounds, Soft, Non-Tender Back Exam: Reports: Normal Inspection Extremities: Normal Range of Motion Skin: Reports: Warm, Dry, Ecchymosis (left thigh) Neurological: Reports: Other (gait steady, tremor minimal of right hand, strengths are equal)
== END 2020-10-07 11:32 | disposition home or self-care (01) | DRG 351 ==
LOC: CC.ED 13:33 → UNDOADMIN 15:00 → CC.MS 15:00
PROVIDERS: ADMIT Physician Assistant Medical; ATTEND Family Medicine
DX: T79.6XXA Traumatic ischemia of muscle, initial encounter (principal); S87.82XA Crushing injury of left lower leg, initial encounter; N30.00 Acute cystitis without hematuria; N17.9 Acute kidney failure, unspecified; E87.1 Hypo-osmolality and hyponatremia; E87.6 Hypokalemia; R26.81 Unsteadiness on feet; R32 Unspecified urinary incontinence; N40.1 Benign prostatic hyperplasia with lower urinary tract symptoms; R33.8 Other retention of urine; V84.5XXA Driver of special agricultural vehicle injured in nontraffic accident, initial encounter; S80.212A Abrasion, left knee, initial encounter; S80.211A Abrasion, right knee, initial encounter; Z79.82 Long term (current) use of aspirin; Z79.899 Other long term (current) drug therapy; Z79.84 Long term (current) use of oral hypoglycemic drugs; B96.20 Unspecified Escherichia coli [E. coli] as the cause of diseases classified elsewhere; R27.0 Ataxia, unspecified; E11.9 Type 2 diabetes mellitus without complications; I10 Essential (primary) hypertension
CPT/HCPCS: 36415; 51702; 70450; 70551; 73562-LT; 76705; 80048; 80053; 81001; 82550; 82947; 83605; 83615; 83735; 84484; 85025; 86140; 87086; 87088; 87186; 93005; 97116-GP; 97161-GP; 99285-25; A9270-GY; J0696; J1650; J3480; J7030